=== PATIENT | male | born 1960 | race African-American/Black ===

== ENCOUNTER 2019-06-28 14:32 | Outpatient (CLI) | payer OTHER, SELFPAY ==
--- NOTE | ~2019-06-28 | CT_ITS ---
EXAMINATION: CT chest wo con DATE: 06/28/2019 15:16 INDICATION: Lung nodule TECHNIQUE: Computed tomography (CT) of the chest was performed without intravenous contrast. The dose -length product (DLP) was 93.33 mGy-cm. Automated exposure control and iterative reconstruction techn ique were employed. COMPARISON: None FINDINGS: No suspicious pulmonary nodule is identified. The lungs are free of acute opacities. There is no pleural effusion or pneumothorax. A calcified nodule of the left upper lobe is consistent with old granulomatous disease. No pathologically enlarged thoracic lymph nodes are identified. The heart size is normal. IMPRESSION: 1. No suspicious pulmonary nodule identified. Reviewed, dictated and finalized at location A.
[2019-06-28 17:04] LABS: Free T4 Free Thyroxine 1.02 ng/mL (0.78-2.19)
[2019-06-28 17:05] LABS: T4 Thyroxine 8.13 ug/dL (5.53-11.0)
[2019-06-28 17:18] LABS: Thyroid Stimulating Hormone 0.372 uIU/mL (0.465-4.680)
[2019-06-30 12:15] LABS: Triiodothyronine T3 Free 3.2 pg/mL (2.3-4.2)
== END 2019-06-28 14:33 | disposition home or self-care (01) ==
PROVIDERS: Visit Provider Family Medicine
DX: R91.1 Solitary pulmonary nodule (principal)
CPT/HCPCS: 36415; 71250; 84436; 84439; 84443; 84481